=== PATIENT | male | born 1945 | race Caucasian/White ===

== ENCOUNTER → 2020-04-01 12:50 | Outpatient (CLI) | payer MEDICARE ==
[2015-07-02 10:20] VITALS: BMI 21.6
[~2020-04-01 12:50] MED LIST: BAYER CHEWABLE81 MG PO; HYDROCODON-ACE1 EAC7 PO; MOBIC7.5 MG PO; PRAVACHOL80 MG PO; PRINIVIL20 MG PO
== END | disposition home or self-care (01) ==
LOC: D.RAD 12:50
PROVIDERS: ATTEND Internal Medicine Gastroenterology
DX: R13.12 Dysphagia, oropharyngeal phase (principal); R12 Heartburn

== ENCOUNTER → 2020-08-26 13:03 | Outpatient (CLI) | payer MEDICARE ==
[2015-07-02 10:20] VITALS: BMI 21.6
== END | disposition home or self-care (01) ==
LOC: D.RAD 13:00
PROVIDERS: ATTEND Internal Medicine Gastroenterology
DX: R13.12 Dysphagia, oropharyngeal phase (principal); R12 Heartburn